=== PATIENT | female | born 1985 | race Caucasian/White ===

== ENCOUNTER 2025-02-10 18:23 | Emergency (ER) | payer SELFPAY ==
[~2025-02-10] VITALS: Ht 172.7 cm; Wt 55.0 kg
[2025-02-10 18:27] VITALS: O2SAT 98
[2025-02-10] MEDS: METOCLOPRAMIDE HCL 10MG/2ML VIAL IV ONE (18:45)
[2025-02-10 19:03] VITALS: BP 114/63; PULSE 80; RESP 16; TEMP 37.8; O2SAT 98
[2025-02-10 19:22] LABS: BASOPHILS % 0.5 % (0.0-2.0); EOSINOPHILS % 0.7 % (0.0-5.0); HEMATOCRIT. 37.9 % (36.0-48.0); HEMOGLOBIN. 12.8 g/dL (12.0-16.0); LYMPHOCYTES % 20.5 % (20.0-50.0); MEAN CORPUSCULAR HEMOGLOBIN 29.8 pg (28.0-32.0); MEAN CORPUSCULAR HGB CONC 33.6 g/dL (31.0-37.0); MEAN CORPUSCULAR VOLUME 88.6 fL (81.0-99.0); MONOCYTES % 11.5 % (2.0-8.0); NEUTROPHILS % 66.8 % (40.0-76.0); PLATELET 344 x1000/uL (130-400); RED BLOOD CELL COUNT 4.28 mill/uL (4.2-5.4); RED CELL DISTRIBUTION WIDTH 14.8 % (11.6-14.6); WHITE BLOOD COUNT 6.2 x1000/uL (4.5-11.0)
[2025-02-10 19:26] LABS: CARBON DIOXIDE 27 mEq/L (21-32); CHLORIDE 105 mEq/L (98-107); POTASSIUM 3.5 mEq/L (3.5-5.1); SODIUM 140 mEq/L (136-145)
[2025-02-10 19:27] LABS: CALCIUM 9.4 mg/dL (8.7-10.4)
[2025-02-10 19:30] LABS: HCG SCREEN NEGATIVE
[2025-02-10 19:31] LABS: CREATININE 0.7 mg/dL (0.6-1.0); GLUCOSE 103 mg/dL (70-105)
[2025-02-10 19:32] LABS: PROTHROMBIN TIME 10.8 sec (9.6-11.0); UREA NITROGEN BLOOD 9 mg/dL (9-23)
[2025-02-10 19:33] LABS: ALANINE AMINOTRANSFERASE 12 IU/L (10-49); ALBUMIN 4.1 g/dL (3.2-4.8); ASPARTATE AMINOTRANSFERASE 16 IU/L (<34)
[2025-02-10 19:34] LABS: BILIRUBIN DIRECT 0.1 mg/dL (<=3.0); BILIRUBIN TOTAL 0.4 mg/dL (0.1-1.0); PROTEIN TOTAL 7.1 g/dL (6.0-8.3)
[2025-02-10] MEDS: SODIUM CHLORIDE 0.9% 1,000 ML IV ONE (20:14)
[2025-02-10] MEDS: PANTOPRAZOLE SODIUM 40 MG/VIAL IV ONE (20:14)
[2025-02-10] MEDS: HALOPERIDOL LACTATE 5MG/ML VIAL IM ONE (20:14)
== END 2025-02-10 21:52 | disposition home or self-care (01) ==
LOC: ER 18:23
DX: R10.13 Epigastric pain (principal); Z79.899 Other long term (current) drug therapy; Z88.5 Allergy status to narcotic agent
CPT/HCPCS: 80076; 80048; 84703; 83690; 85025; 85610; 36415; 74176; 76705; 96361; 96372; 96374; 96375; 99285; J1630; J2765; J2470; J7030; Z7610